=== PATIENT | female | born 1985 | race Caucasian/White ===

== ENCOUNTER 2022-03-19 21:01 | Emergency (ER) | payer OTHER, SELFPAY ==
--- NOTE | ~2022-03-19 | US_ITS ---
EXAMINATION: US OBSTETRICAL ULTRASOUND CLINICAL INFORMATION: 13 weeks . Vaginal bleeding. COMPARISON: None. LMP: 12/19/2021. Gestational age by maternal dates is 13 weeks 0 days. Estimated date of delivery by maternal dates is 09/25/2022. TECHNIQUE: Transabdominal sonographic evaluation of the pelvis. FINDINGS: There is a single intrauterine gestational sac with embryo/fetus, and cardiac activity. There is no significant subchorionic hemorrhage or hematoma. HR: 149 beats per minute. CRL (crown rump length): 7.55 cm (13 weeks 5 days +/- 4 days). MASSIEL (estimated date of delivery): 09/20/2022 +/- 4 days. MATERNAL ADNEXA: The right maternal ovary measures 3.3 x 2.2 x 2.5 cm. The left maternal ovary measures 3.7 x 3 x 2.7 cm. 2.5 cm probable corpus luteal cyst. There is no significant maternal adnexal mass. No maternal pelvic ascites. US/US OB <= 14 weeks fetus IMPRESSION: 1. Single intrauterine gestation with ultrasound gestational age of 13 weeks 5 days +/- 4 days. 2. Estimated date of delivery is 09/20/2022 +/- 4 days. 3. No maternal adnexal mass or pelvic ascites.
[2022-03-19 21:10] VITALS: BP 143/77; PULSE 89; RESP 16; TEMP 36.1; O2SAT 98; BMI 31.8
[2022-03-19 21:56] LABS: MANUAL DIFF FLAG NO
[2022-03-19 21:57] LABS: Basophils Percent Auto 0.3 % (0-2); Eosinophils Absolute Auto 0.1 X10*3/uL (0.0-0.4); Eosinophils Percent Auto 1.6 % (0-4); Hematocrit 32.5 % (37.0-47.0); Hemoglobin 10.9 g/dl (12.0-16.0); Imm Gran Abs Auto 0.02 X10*3/uL (0.00-0.03); Imm Gran Pct Auto 0.3 % (0.0-0.4); Lymphocytes Absolute Auto 2.1 X10*3/uL (1.2-4.9); Lymphocytes Percent Auto 27.7 % (20-40); Mean Corpuscular HGB Conc 33.5 g/dl (31.0-35.0); Mean Corpuscular Hemoglobin 27.9 pg (27.0-33.0); Mean Corpuscular Volume 83.1 fL (80.0-98.0); Mean Platelet Volume 10.2 fL (9.4-12.3); Monocytes Absolute Auto 0.4 X10*3/uL (0.1-1.2); Monocytes Percent Auto 5.5 % (2-11); Neutrophils Percent Auto 64.6 % (45-73); Platelet Count 215 X10*3/uL (160-400); Red Blood Count 3.91 X10*6/uL (4.20-5.50); Red Cell Distribution Width 12.3 % (11.0-16.0); White Blood Count 7.7 X10*3/uL (4.8-10.8)
[2022-03-19 21:59] LABS: Appearance Urine HAZY; Color Urine YELLOW; Glucose Urine UA NEG (NEG); Leukocyte Esterase Urine NEG (NEG); Nitrite Urine NEG (NEG); Specific Gravity - Urine 1.025 (1.005-1.025); UACC Culture Trigger NO; Urine Blood 3+ (NEG); Urine Ketones NEG (NEG); Urine Protein NEG (NEG-TRACE)
[2022-03-19 22:15] LABS: Bacteria Urine 1+ /LPF; Squamous Epithelial Cell Urine 1+ /LPF; WBC Urine 0 /HPF (0-4)
[2022-03-19 22:18] LABS: Alanine Aminotransferase 12 U/L (0-31); Alkaline Phosphatase 51 U/L (39-117); Anion Gap 13 (12-20); Aspartate Amino Transferase 11 U/L (5-31); Bilirubin Total 0.2 mg/dL (0.0-1.0); Blood Urea Nitrogen 13 mg/dL (9-16); Calcium 9.3 mg/dL (8.4-10.2); Carbon Dioxide 24 mmol/L (22-29); Chloride 105 mmol/L (96-108); Creatinine Clr Calc Pharmacy 100.6; Estimated Glomerular Filt Rate > 60; Glucose Random 103 mg/dL (60-115); Sodium 138 mmol/L (135-145); Total Protein 6.7 g/dL (6.5-8.0)
--- NOTE | 2022-03-20 00:33 | ED.PREGNANCY ---
HPI - General Chief complaint: Vaginal Bleeding Stated complaint: 13 Week and bleeding Time Seen by Provider: 03/19/22 23:40 Source: patient and other Mode of arrival: ambulatory History of Present Illness HPI Narrative: 36-year-old female presents at 13 weeks gestation, via fertility intervention, so far uncomplicated other than to prior spotting episodes during her 1st trimester is who presents after having significant vaginal bleeding that started during sexual intercourse. Since that time the bleeding has gradually slowed and now is pink in color. She denies any abdominal cramping. Related Data Allergies Allergy/AdvReac Type Severity Reaction Status Date / Time No Known Allergies Allergy Unverified 05/28/20 17:52 Review of Systems Review of Systems: Pertinent positives and negatives as stated in HPI 10 point review of systems is otherwise negative. PMFSH Past Medical History Source: nursing notes reviewed Social History Social History Advance Directives: No Physical Exam Vital Signs: Vital Signs: Last Vital Signs Temp 97 F 03/19/22 21:10 Pulse 75 03/20/22 00:34 Resp 16 03/20/22 00:34 BP 122/64 03/20/22 00:34 Pulse Ox 100 03/20/22 00:34 O2 Del Method 03/19/22 21:10 BMI result Body Mass Index 31.8 VITAL SIGNS: Reviewed. GENERAL: Well developed, well nourished, in no acute distress. HEAD: Normocephalic/atraumatic EYES: PERRLA, EOMI EARS: Ext canals without abnormality OROPHARYNX: no oral lesions noted, posterior pharynx clear LUNGS: Normal breath sounds. No adventitious sounds or accessory muscle use. SpO2<98> CARDIOVASCULAR: Regular rate and rhythm without noted murmurs ABDOMEN: Soft, non-tender, non-distended with bowel sounds. SKIN: Inspection of the skin reveals no rashes NEUROLOGIC: Alert and oriented x 4. Strength and sensation to light touch were grossly intact x 4. FHR: 149 Course Course Course Narrative: 36-year-old female with history and clinical presentation consistent with vaginal bleeding likely associated with sexual intercourse and patient is on a the daily baby aspirin due to ?advanced maternal age?. Bleeding has improved but will obtain ultrasound to ensure good placental placement. Patient is otherwise asymptomatic. Review of all investigations with ultrasound read of no significant subchorionic hemorrhage or hematoma and EGA: 13 weeks and 5 days. 0223: Informed by nursing that patient had left the emergency room. MDM - OB/Uterine Contractions Lab Data Result diagrams: 03/19/22 21:52 03/19/22 21:52 Labs: Lab Results 03/19/22 03/19/22 03/19/22 Range/Units 21:52 21:52 21:53 WBC 7.7 (4.8-10.8) X10*3/uL RBC 3.91 L (4.20-5.50) X10*6/uL Hgb 10.9 L (12.0-16.0) g/dl Hct 32.5 L (37.0-47.0) % MCV 83.1 (80.0-98.0) fL MCH 27.9 (27.0-33.0) pg MCHC 33.5 (31.0-35.0) g/dl RDW 12.3 (11.0-16.0) % Plt Count 215 (160-400) X10*3/uL MPV 10.2 (9.4-12.3) fL Immature Gran % (Auto) 0.3 (0.0-0.4) % Neut % (Auto) 64.6 (45-73) % Lymph % (Auto) 27.7 (20-40) % [place] % (Auto) 5.5 (2-11) % Eos % (Auto) 1.6 (0-4) % Baso % (Auto) 0.3 (0-2) % Lymph # (Auto) 2.1 (1.2-4.9) X10*3/uL [place] # (Auto) 0.4 (0.1-1.2) X10*3/uL Eos # (Auto) 0.1 (0.0-0.4) X10*3/uL Baso # (Auto) 0.0 (0.0-0.2) X10*3/uL Abs Immat Gran (auto) 0.02 (0.00-0.03) X10*3/uL Absolute Neuts (auto) 5.0 (2.0-8.3) x10*3/uL Absolute Nucleated RBC 0.000 (0.0-0.012) X10*3/uL Nucleated RBC % (auto) 0.0 (0.0-0.2) /100WBC Sodium 138 (135-145) mmol/L Potassium 4.0 (3.3-5.1) mmol/L Chloride 105 (96-108) mmol/L Carbon Dioxide 24 (22-29) mmol/L Anion Gap 13 (12-20) BUN 13 (9-16) mg/dL Creatinine 0.79 (0.5-1.4) mg/dL Estim Creat Clear Calc 100.6 Estimated GFR > 60 Random Glucose 103 (60-115) mg/dL Calcium 9.3 (8.4-10.2) mg/dL Total Bilirubin 0.2 (0.0-1.0) mg/dL AST 11 (5-31) U/L ALT 12 (0-31) U/L Alkaline Phosphatase 51 (39-117) U/L Total Protein 6.7 (6.5-8.0) g/dL Albumin 4.0 (3.5-5.0) g/dL Beta HCG, Quant 51100 mIU/mL Urine Color YELLOW Urine Appearance HAZY Urine pH 6.0 (5.0-8.0) Ur Specific [place] 1.025 (1.005-1.025) Urine Protein NEG (NEG-TRACE) MG/DL Urine Glucose (UA) NEG (NEG) MG/DL Urine Ketones NEG (NEG) MG/DL Urine Blood 3+ H (NEG) Urine Nitrite NEG (NEG) Ur Leukocyte Esterase NEG (NEG) Urine RBC 76-150 H (0) /HPF Urine WBC 0 (0-4) /HPF Ur Squamous Epith Cells 1+ /LPF Urine Bacteria 1+ /LPF Discharge Plan Discharge Clinical Impression: Vaginal bleeding, Patient Disposition: Elopement
[2022-03-20 00:34] VITALS: BP 122/64; PULSE 75; RESP 16; O2SAT 100
--- NOTE | 2022-03-20 00:36 | PC.NURSE ---
unquantified blood loss, pt reported heavy bleeding, now bleeding controlled, dilute blood when pt wipes
--- NOTE | 2022-03-20 02:25 | PC.NURSE ---
pt left prior to being discharged and did not notify any staff.
== END 2022-03-20 02:44 | disposition left against medical advice (07) ==
PROVIDERS: Emergency Provider Student in an Organized Health Care Education/Training Program
DX: O20.9 Hemorrhage in early pregnancy, unspecified (principal); Z3A.13 13 weeks gestation of pregnancy
CPT/HCPCS: 36415; 76801; 80053; 81001; 81003; 84702; 85025; 99284